=== PATIENT | male | born 2000 | race Caucasian/White ===

== ENCOUNTER 2019-09-30 13:13 | Emergency (ER) | payer MEDICAID ==
[~2019-09-30] VITALS: Ht 172.7 cm; Wt 118.0 kg
[2019-09-30] MEDS ORDERED: TETANUS, DIPHTHERIA, PERTUSSIS VAC/PF 0.5ML (>7YR OLD) IM ONE (14:45)
[2019-09-30] MEDS ORDERED: BACITRACIN ZINC OINT UDPKT TOP ONE (14:45)
[2019-09-30] MEDS ORDERED: IBUPROFEN 600MG TABLET PO ONE (14:45)
[2019-09-30] MEDS ORDERED: AMOXICILLIN/POTASSIUM CLAVULANATE 875/125MG TAB PO ONE (14:45)
[2019-09-30 16:04] VITALS: BP 128/65
== END 2019-09-30 16:09 | disposition home or self-care (01) ==
LOC: ER 13:13
DX: S91.332A Puncture wound without foreign body, left foot, initial encounter (principal); W22.09XA Striking against other stationary object, initial encounter; Y93.9 Activity, unspecified; Y92.9 Unspecified place or not applicable
CPT/HCPCS: 73630; 90471; 90715; 99283